=== PATIENT | female | born 1975 | race Two or more races ===

== ENCOUNTER 2021-01-29 17:31 | Emergency (ER) | payer MEDICAID, OTHER ==
[~2021-01-29] VITALS: Ht 165.1 cm; Wt 59.0 kg
[2021-01-29 19:12] LABS: Basophils # (auto) 0 10 ^3/uL (0-0.2); Basophils % (auto) 0.3 % (0.0-2.0); Eosinophils # (auto) 0 10 ^3/uL (0-0.8); Eosinophils % (auto) 0.7 % (0.0-7.0); Hematocrit 37.8 % (36.0-46.0); Hemoglobin 12.6 g/dL (12.2-16.2); Lymphocytes # (auto) 2.3 10 ^3/uL (0.4-5.4); Lymphocytes % (auto) 38.6 % (10.0-50.0); Mean Corpuscular Hemoglobin 31.5 pg (28.0-32.0); Mean Corpuscular Hgb Conc. 33.2 g/dL (32.0-36.0); Mean Corpuscular Volume 94.7 fL (80.0-100.0); Monocytes # (auto) 0.3 10 ^3/uL (0-1.3); Monocytes % (auto) 5.1 % (0.0-12.0); Neutrophils # (auto) 3.3 10 ^3/uL (1.6-8.6); Neutrophils % (auto) 55.3 % (37.0-80.0); Nucleated Red Blood Cells % 0.2 %; Red Blood Cells 3.99 10^6/uL (4.0-5.20); Red Cell Distribution Width 12.7 % (11.8-14.3)
[2021-01-29 19:35] LABS: Albumin 4.4 g/dL (3.4-5.0); Potassium 3.4 mmol/L (3.5-5.1)
[2021-01-29 19:38] LABS: BUN/Creatinine Ratio 35.7
[2021-01-29 19:51] LABS: Bilirubin, Total 0.4 mg/dL (0.2-1.0); Total Protein 7.9 g/dL (6.4-8.2)
[2021-01-29 21:10] VITALS: BP 145/85
== END 2021-01-29 21:20 | disposition home or self-care (01) ==
LOC: ER 17:31
DX: R07.89 Other chest pain (principal); F17.210 Nicotine dependence, cigarettes, uncomplicated; Z90.710 Acquired absence of both cervix and uterus
CPT/HCPCS: 36415; 71046; 80053; 84484; 85025; 93005

== ENCOUNTER 2021-04-26 04:37 | Emergency (ER) | payer MEDICAID ==
[~2021-04-26] VITALS: Ht 165.1 cm; Wt 61.2 kg
[2021-04-26 06:09] LABS: Basophils # (auto) 0 10 ^3/uL (0-0.2); Basophils % (auto) 0.9 % (0.0-2.0); Eosinophils # (auto) 0.1 10 ^3/uL (0-0.8); Eosinophils % (auto) 1.1 % (0.0-7.0); Hematocrit 40.4 % (36.0-46.0); Hemoglobin 13.7 g/dL (12.2-16.2); Lymphocytes # (auto) 2.2 10 ^3/uL (0.4-5.4); Lymphocytes % (auto) 48.3 % (10.0-50.0); Mean Corpuscular Hemoglobin 31.8 pg (28.0-32.0); Mean Corpuscular Hgb Conc. 33.9 g/dL (32.0-36.0); Mean Corpuscular Volume 93.9 fL (80.0-100.0); Monocytes # (auto) 0.3 10 ^3/uL (0-1.3); Monocytes % (auto) 7.4 % (0.0-12.0); Neutrophils # (auto) 1.9 10 ^3/uL (1.6-8.6); Neutrophils % (auto) 42.3 % (37.0-80.0); Nucleated Red Blood Cells % 0.1 %; Red Blood Cells 4.31 10^6/uL (4.0-5.20); Red Cell Distribution Width 14.1 % (11.8-14.3); White Blood Cell 4.6 10^3/uL (4.4-10.8)
[2021-04-26 06:41] LABS: Potassium 3.4 mmol/L (3.5-5.1)
[2021-04-26 06:49] LABS: Albumin 4.6 g/dL (3.4-5.0); BUN/Creatinine Ratio 28.6; Bilirubin, Total 0.5 mg/dL (0.2-1.0); Total Protein 8.3 g/dL (6.4-8.2)
[2021-04-26] MEDS ORDERED: MECL1TAB42 PO (07:56)
[2021-04-26 08:13] VITALS: BP 131/96
== END 2021-04-26 08:14 | disposition home or self-care (01) ==
LOC: ER 04:37
DX: R42 Dizziness and giddiness (principal); F17.210 Nicotine dependence, cigarettes, uncomplicated; Z90.710 Acquired absence of both cervix and uterus
CPT/HCPCS: 36415; 70450; 80053; 83735; 85025

== ENCOUNTER → 2021-06-20 | Emergency (ER) | payer MEDICAID ==
[~2021-06-20] VITALS: Ht 165.1 cm; Wt 66.7 kg
[~2021-06-20] MED LIST: MECL1TAB42 PO
[2021-06-20 23:41] VITALS: BP 134/90
== END | disposition left against medical advice (07) ==
LOC: ER 23:36
DX: M54.50 Low back pain, unspecified (principal); R11.0 Nausea; Z53.21 Procedure and treatment not carried out due to patient leaving prior to being seen by health care provider

== ENCOUNTER 2021-08-17 19:26 | Emergency (ER) | payer MEDICAID ==
[~2021-08-17] VITALS: Ht 165.1 cm; Wt 61.2 kg
[2021-08-17 21:16] LABS: Basophils # (auto) 0 10 ^3/uL (0-0.2); Basophils % (auto) 0.2 % (0.0-2.0); Eosinophils # (auto) 0.1 10 ^3/uL (0-0.8); Eosinophils % (auto) 1.1 % (0.0-7.0); Hematocrit 36.4 % (36.0-46.0); Hemoglobin 12.2 g/dL (12.2-16.2); Lymphocytes # (auto) 2.1 10 ^3/uL (0.4-5.4); Lymphocytes % (auto) 44.9 % (10.0-50.0); Mean Corpuscular Hemoglobin 29.5 pg (28.0-32.0); Mean Corpuscular Hgb Conc. 33.6 g/dL (32.0-36.0); Mean Corpuscular Volume 87.7 fL (80.0-100.0); Monocytes # (auto) 0.4 10 ^3/uL (0-1.3); Monocytes % (auto) 7.4 % (0.0-12.0); Neutrophils # (auto) 2.2 10 ^3/uL (1.6-8.6); Neutrophils % (auto) 46.4 % (37.0-80.0); Nucleated Red Blood Cells % 0.1 %; Red Blood Cells 4.16 10^6/uL (4.0-5.20); Red Cell Distribution Width 13.3 % (11.8-14.3); White Blood Cell 4.7 10^3/uL (4.4-10.8)
[2021-08-17 21:33] LABS: Albumin 3.6 g/dL (3.4-5.0); BUN/Creatinine Ratio 31.7; Calcium 8.3 mg/dL (8.5-10.1); Potassium 3.2 mmol/L (3.5-5.1)
[2021-08-17 21:36] LABS: Bilirubin, Total 0.7 mg/dL (0.2-1.0); Total Protein 6.7 g/dL (6.4-8.2)
[2021-08-17 22:52] LABS: Urine Bacteria NONE SEEN /hpf (None Seen); Urine Blood Negative /uL (Negative); Urine Mucus FEW (None Seen); Urine Specific Gravity 1.023 (1.001-1.035); Urine WBC <1 /hpf (0 - 5)
[2021-08-17 23:49] VITALS: BP 118/70
== END 2021-08-17 23:50 | disposition home or self-care (01) ==
LOC: ER 19:26
DX: R10.2 Pelvic and perineal pain (principal); Z90.710 Acquired absence of both cervix and uterus; Z87.891 Personal history of nicotine dependence; Z79.899 Other long term (current) drug therapy
CPT/HCPCS: 36415; 74176; 80053; 81001; 85025

== ENCOUNTER 2021-10-08 11:05 | Emergency (ER) | payer MEDICAID ==
[~2021-10-08] VITALS: Ht 165.1 cm; Wt 75.0 kg
[2021-10-08 12:22] LABS: Albumin 3.9 g/dL (3.4-5.0); Calcium 8.7 mg/dL (8.5-10.1); Potassium 3.9 mmol/L (3.5-5.1)
[2021-10-08 12:25] LABS: BUN/Creatinine Ratio 31.1; Bilirubin, Total 0.7 mg/dL (0.2-1.0); Total Protein 7.3 g/dL (6.4-8.2)
[2021-10-08 13:15] LABS: Basophils # (auto) 0 10 ^3/uL (0-0.2); Basophils % (auto) 0.2 % (0.0-2.0); Eosinophils # (auto) 0 10 ^3/uL (0-0.8); Eosinophils % (auto) 0.8 % (0.0-7.0); Hematocrit 38.6 % (36.0-46.0); Hemoglobin 12.5 g/dL (12.2-16.2); Lymphocytes # (auto) 1.7 10 ^3/uL (0.4-5.4); Lymphocytes % (auto) 30.6 % (10.0-50.0); Mean Corpuscular Hemoglobin 27.2 pg (28.0-32.0); Mean Corpuscular Hgb Conc. 32.5 g/dL (32.0-36.0); Mean Corpuscular Volume 83.6 fL (80.0-100.0); Monocytes # (auto) 0.3 10 ^3/uL (0-1.3); Monocytes % (auto) 5.4 % (0.0-12.0); Neutrophils # (auto) 3.4 10 ^3/uL (1.6-8.6); Nucleated Red Blood Cells % 0.1 %; Red Blood Cells 4.62 10^6/uL (4.0-5.20); Red Cell Distribution Width 14.2 % (11.8-14.3); White Blood Cell 5.4 10^3/uL (4.4-10.8)
[2021-10-08 16:12] LABS: Urine Bacteria NONE SEEN /hpf (None Seen); Urine Blood TRACE /uL (Negative); Urine Mucus FEW (None Seen); Urine WBC 1 /hpf (0 - 5)
[2021-10-08 16:24] VITALS: BP 132/74
== END 2021-10-08 16:23 | disposition home or self-care (01) ==
LOC: ER 11:18
DX: R55 Syncope and collapse (principal); R51.9 Headache, unspecified; Z20.822 Contact with and (suspected) exposure to COVID-19; Z90.710 Acquired absence of both cervix and uterus
CPT/HCPCS: 36415; 70450; 80053; 81001; 85025; 93005

== ENCOUNTER 2021-12-23 22:34 | Emergency (ER) | payer MEDICAID | END 2021-12-23 23:23 | disposition left against medical advice (07) | LOC: ER 22:34 | DX: R10.9 Unspecified abdominal pain (principal); Z53.21 Procedure and treatment not carried out due to patient leaving prior to being seen by health care provider ==

== ENCOUNTER 2022-04-21 15:58 | Emergency (ER) | payer MEDICAID ==
[~2022-04-21] VITALS: Ht 165.1 cm; Wt 69.9 kg
[2022-04-21 16:17] VITALS: BP 137/93
[2022-04-21 17:31] LABS: Basophils # (auto) 0 10 ^3/uL (0-0.2); Basophils % (auto) 0.4 % (0.0-2.0); Eosinophils # (auto) 0.1 10 ^3/uL (0-0.8); Eosinophils % (auto) 1.3 % (0.0-7.0); Hematocrit 34.8 % (36.0-46.0); Hemoglobin 11.2 g/dL (12.2-16.2); Lymphocytes % (auto) 38.9 % (10.0-50.0); Mean Corpuscular Hemoglobin 24.4 pg (28.0-32.0); Mean Corpuscular Hgb Conc. 32.1 g/dL (32.0-36.0); Mean Corpuscular Volume 76.2 fL (80.0-100.0); Monocytes # (auto) 0.3 10 ^3/uL (0-1.3); Monocytes % (auto) 5.3 % (0.0-12.0); Neutrophils # (auto) 2.8 10 ^3/uL (1.6-8.6); Neutrophils % (auto) 54.1 % (37.0-80.0); Nucleated Red Blood Cells % 0.1 %; Red Blood Cells 4.57 10^6/uL (4.0-5.20); Red Cell Distribution Width 18.6 % (11.8-14.3); White Blood Cell 5.2 10^3/uL (4.4-10.8)
[2022-04-21 17:45] LABS: Albumin 3.8 g/dL (3.4-5.0); Calcium 8.7 mg/dL (8.5-10.1); Potassium 3.3 mmol/L (3.5-5.1)
[2022-04-21 17:47] LABS: BUN/Creatinine Ratio 34.8
[2022-04-21 17:50] LABS: Bilirubin, Total 0.6 mg/dL (0.2-1.0); Total Protein 7.1 g/dL (6.4-8.2)
[2022-04-21] MEDS ORDERED: POTASSIUM EFFERVESENT TAB 25 MEQ PO ONE (21:00)
[2022-04-21] MEDS ORDERED: FERROUS SULFATE 325mg EC TAB PO ONE (21:00)
== END 2022-04-21 22:39 | disposition left against medical advice (07) ==
LOC: ER 15:58
DX: E87.6 Hypokalemia (principal); D64.9 Anemia, unspecified; Z90.710 Acquired absence of both cervix and uterus; Z87.891 Personal history of nicotine dependence; Z79.899 Other long term (current) drug therapy; Z88.8 Allergy status to other drugs, medicaments and biological substances
CPT/HCPCS: 36415; 71045; 80053; 84484; 85025; 93005; 99285; J7030

== ENCOUNTER 2022-09-28 23:58 | Emergency (ER) | payer MEDICAID ==
[~2022-09-28] VITALS: Ht 165.1 cm; Wt 67.0 kg
[2022-09-29 00:23] LABS: Basophils # (auto) 0 10 ^3/uL (0-0.2); Basophils % (auto) 0.2 % (0.0-2.0); Eosinophils # (auto) 0.1 10 ^3/uL (0-0.8); Eosinophils % (auto) 1.6 % (0.0-7.0); Hematocrit 37.2 % (36.0-46.0); Hemoglobin 12.3 g/dL (12.2-16.2); Lymphocytes # (auto) 3.2 10 ^3/uL (0.4-5.4); Lymphocytes % (auto) 47.6 % (10.0-50.0); Mean Corpuscular Hemoglobin 28.4 pg (28.0-32.0); Mean Corpuscular Hgb Conc. 33.1 g/dL (32.0-36.0); Mean Corpuscular Volume 85.9 fL (80.0-100.0); Monocytes # (auto) 0.4 10 ^3/uL (0-1.3); Monocytes % (auto) 6.5 % (0.0-12.0); Neutrophils % (auto) 44.1 % (37.0-80.0); Nucleated Red Blood Cells % 0.1 %; Red Blood Cells 4.33 10^6/uL (4.0-5.20); Red Cell Distribution Width 15.6 % (11.8-14.3); White Blood Cell 6.7 10^3/uL (4.4-10.8)
[2022-09-29 00:30] LABS: INR 1.06 (0.9-1.15); Partial Thromboplastin Time 27.9 SEC (24.5-34.5)
[2022-09-29 00:33] LABS: Albumin 3.8 g/dL (3.4-5.0); BUN/Creatinine Ratio 28.6 (10.0-20.0); Calcium 8.3 mg/dL (8.5-10.1); Magnesium 2.2 mg/dL (1.6-2.6); Potassium 3.4 mmol/L (3.5-5.1)
[2022-09-29 00:36] LABS: Bilirubin, Total 0.5 mg/dL (0.2-1.0); Total Protein 7.2 g/dL (6.4-8.2)
[2022-09-29] MEDS ORDERED: POTASSIUM CHL 20 Meq TABLET PO ONE (02:15)
[2022-09-29] MEDS ORDERED: HYDROcodone-ACET 5/325MG TAB PO ONE (02:15)
[2022-09-29] MEDS ORDERED: DexAMETHasone SOD PHOS 10MG/1ML VIAL INJ IV ONE (02:15)
[2022-09-29 04:29] VITALS: BP 148/93
== END 2022-09-29 04:46 | disposition home or self-care (01) ==
LOC: ER 23:58
DX: R07.89 Other chest pain (principal); E87.6 Hypokalemia; G89.29 Other chronic pain; M54.9 Dorsalgia, unspecified; R06.02 Shortness of breath; Z87.891 Personal history of nicotine dependence; Z90.710 Acquired absence of both cervix and uterus
CPT/HCPCS: 36415; 71045; 80053; 83735; 83880; 84484; 85025; 85610; 85730; 93005; 96374; 99285; J1100

== ENCOUNTER 2023-05-31 17:47 | Emergency (ER) | payer MEDICAID ==
[~2023-05-31] VITALS: Ht 162.6 cm; Wt 73.7 kg
[~2023-05-31 17:47] MED LIST changes: +ACET-1304 PO; +CEPH500T PO; +METO-281 PO
[2023-05-31 18:02] VITALS: BP 140/86; PULSE 70; RESP 18; O2SAT 95
== END 2023-05-31 20:35 | disposition left against medical advice (07) ==
LOC: ER 17:47
DX: R05.9 Cough, unspecified (principal); Z53.21 Procedure and treatment not carried out due to patient leaving prior to being seen by health care provider

== ENCOUNTER 2024-06-25 14:31 | Inpatient (IN) | payer MEDICAID ==
[~2024-06-25] VITALS: Ht 165.1 cm; Wt 66.0 kg
--- NOTE | 2024-06-25 14:54 | ED.PDOC ---
HPI Comments 49 y.o female with PMHx of HTN, anxiety, DM, and back pain, presents to the ED via EMS for a chief complaint of substernal chest pain radiating to the left side and to bilateral shoulder blades that started today around 0200. Patient reports pain woke her up from her sleep, states pain is reproducible and is associated with new onset of chills. Patient was at a clinic today to follow up with PCP when pain worsened, prompting office to call 911. Patient denies any nausea, vomiting, fever, chills, abdominal pain. Time Seen by MD: 14:35 Primary Care Provider: ALLAN Reviewed Notes: Nurses Notes, Market Master Notes, Medications, Allergies Allergies: Uncoded Allergies: GLUTEN (Allergy, Unknown, 04/26/21) Home Meds Reported Medications Oxycodone Hcl (OxyCONTIN ER Tablet) 10 Mg Tb, 1 TAB PO TIDPRN, #60 TAB 06/25/24 Gabapentin (Gabapentin) 300 Mg Cap, 1 CAP PO TID, #90 CAP 3 Refills 06/25/24 Tizanidine Hydrochloride (Zanaflex) 4 Mg Cap, 1 CAP PO TID, #90 CAP 06/25/24 Information Source: Patient, Emergency Med Personnel Mode of Arrival: Ambulatory Severity: Moderate Timing: Hours Duration: Since onset Prehospital treatment: 12 Lead EKG, Accucheck (115), Disability Program Navigator Location: Chest (L), Substernal Radiation: Shoulder (R), Shoulder (L) Quality: Sharp Onset: At Rest Cardiac Risk Factors: HTN, Diabetes PE Risk Factors: None History of: None Modifying Factors: Nothing Associated Signs and Symptoms: Other Past Medical History PAST MEDICAL HISTORY: Anxiety, DM, HTN Past Medical History (Other): chronic back pain Surgical History: Hysterectomy Surgical History (Other): neck ENDLESS BELT FINISHER History: No Pertinent ENDLESS BELT FINISHER History Family History Family History: Family hx of DM, Family hx of Cancer, Family hx of heart holly Social History Smoker: Quit Less Than 1 Year Alcohol: Denies ETOH Use Drugs: Denies Drug Use Lives In: Home Constitutional: denies: chills, diaphoresis, fatigue, fever, malaise, sweats, weakness, others EENTM: denies: blurred vision, double vision, ear bleeding, ear discharge, ear drainage, ear pain, ear ringing, eye pain, eye redness, hearing loss, mouth pain, mouth swelling, nasal discharge, nose bleeding, nose congestion, nose pain, photophobia, tearing, throat pain, throat swelling, voice changes, others Respiratory: denies: cough, hemoptysis, orthopnea, SOB at rest, shortness of breath, SOB with excertion, stridor, wheezing, others Cardiovascular: reports: chest pain; denies: dizzy spells, diaphoresis, Dyspnea on exertion, edema, irregular heart beat, left arm pain, lightheadedness, palpitations, PND, syncope, others Gastrointestinal: denies: abdomen distended, abdominal pain, blood streaked bowels, constipated, diarrhea, dysphagia, difficulty swallowing, hematemesis, melena, nausea, poor appetite, poor fluid intake, rectal bleeding, rectal pain, vomiting, others Genitourinary: denies: abnormal vagina bleeding, burning, dyspareunia, dysuria, flank pain, frequency, hematuria, incontinence, pain, , vagina discharge, urgency, others Neurological: denies: dizziness, fainting, headache, left sided numbness, left sided weakness, numbness, paresthesia, pre-existing deficit, right sided numbness, right sided weakness, seizure, speech problems, tingling, tremors, weakness, others Musculoskeletal: reports: others (bilateral shoulder blade pain ); denies: back pain, gout, joint pain, joint swelling, muscle pain, muscle stiffness, neck pain Integumetry: denies: bruises, change in color, change in hair/nails, dryness, laceration, lesions, lumps, rash, wounds, others Allergic/Immunocompromised: denies: Difficulty Healing, Frequent Infections, H deshaun, Itching, others Hematologic/Lymphatic: denies: anemia, blood clots, easy bleeding, easy bruising, swollen glands, others Endocrine: denies: excessive hunger, excessive sweating, excessive thirst, excessive urination, flushing, intolerance to cold, intolerance to heat, unexplained weight gain, unexplained weight loss, others Psychiatric: denies: anxiety, bipolar disorder, depression, hopeless, panic disorder, schizophrenia, sleepless, suicidal, others All Other Systems: Reviewed and Negative Physical Exam General Appearance: Moderate Distress HEENT: Normal ENT Inspection, Pharynx Normal, TMs Normal Neck: Full Range of Motion, Non-Tender, Normal, Normal Inspection Respiratory: Chest Non-Tender, Lungs Clear, No Accessory Muscle Use, No Respiratory Distress, Normal Breath Sounds Cardiovascular: No Edema, No JVD, No Murmur, No Gallop, Normal Peripheral Pulses, Regular Rate/Rhythm Breast Exam: Deferred Gastrointestinal: No Organomegaly, Non Tender, No Pulsatile Mass, Normal Bowel Sounds, Soft Genitalia: Deferred Pelvic: Deferred Rectal: Deferred Extremities: No calf tenderness, Normal capillary refill, Normal inspection, Normal range of motion, Non-tender, No pedal edema Musculoskeletal : Apperance: Normal Neurologic: Alert, radiologist chief of breast imaging II-XII nml as Tested, Motor Weakness, Normal Affect, Normal Mood, No Sensory Deficits Cerebellar Function: Normal Reflexes: Normal Skin: Dry, Normal Color, Warm Lymphatic: No Adenopathy EKG EKG : Pulse Rate (adult): 76 Cardiac Rhythm: NSR Hypertrophy: LVH Was a procedure done? Was a procedure done?: No CP Differential Dx Differential Diagnosis: Anxiety / Panic Attack Differential Diagnosis: Medical NonCompliance Differential Diagnosis: Angina, Chest Wall Pain, Cholelithiasis, Costochondritis, Esophageal reflux/spasm, Gastritis, Myocardial Infarction, Pericarditis X-Ray, Labs, Meds, VS Vital Signs Date Time Temp Pulse Resp B/P (MAP) Pulse Ox O2 Delivery O2 Flow Rate FiO2 06/25/24 19:23 99.2 110 18 156/112 (127) 97 99.2 06/25/24 15:59 92 06/25/24 15:10 98.2 95 16 142/85 (104) 97 98.2 06/25/24 15:10 95 16 98 Room Air* 0 21 06/25/24 15:01 76 06/25/24 14:59 76 06/25/24 14:57 98.2 88 20 190/92 (124) 96 98.2 Lab Test 06/25/24 16:11 06/25/24 15:18 06/25/24 15:08 Range/Units Troponin I High Sensitivity 3 L 4 </=34 ng/L Urine Color Light-yellow Yellow Urine Clarity Clear Clear Urine pH 7.0 5.0-9.0 Urine Specific [place] 1.014 1.001-1.035 Urine Protein 1+ H Negative Urine Ketones Negative Negative Urine Blood 1+ H Negative /uL Urine Nitrite Negative Negative Urine Bilirubin Negative Negative Urine Urobilinogen Normal Negative mg/dL Urine Leukocyte Esterase Negative Negative /uL Urine RBC 6 0 - 4 /hpf Urine Microscopic WBC < 1 0-5 /HPF Urine Squamous Epithelial Cells Few <5 /hpf Urine Bacteria None seen None Seen /hpf Urine Mucus Few None Seen Urine Glucose Normal Normal mg/dL White Blood Count 7.3 4.4-10.8 10^3/uL Red Blood Count 5.13 4.0-5.20 10^6/uL Hemoglobin 14.9 12.2-16.2 g/dL Hematocrit 44.5 36.0-46.0 % Mean Corpuscular Volume 86.8 80.0-100.0 fL Mean Corpuscular Hemoglobin 29.1 28.0-32.0 pg Mean Corpuscular Hemoglobin Concent 33.5 32.0-36.0 g/dL Red Cell Distribution Width 12.8 11.8-14.3 % Platelet Count 310 140-450 10^3/uL Mean Platelet Volume 8.0 6.9-10.8 fL Neutrophils (%) (Auto) 63.9 37.0-80.0 % Lymphocytes (%) (Auto) 31.1 10.0-50.0 % Monocytes (%) (Auto) 4.2 0.0-12.0 % Eosinophils (%) (Auto) 0.4 0.0-7.0 % Basophils (%) (Auto) 0.4 0.0-2.0 % Neutrophils # (Auto) 4.7 1.6-8.6 10 ^3/uL Lymphocytes # (Auto) 2.3 0.4-5.4 10 ^3/uL Monocytes # (Auto) 0.3 0-1.3 10 ^3/uL Eosinophils # (Auto) 0 0-0.8 10 ^3/uL Basophils # (Auto) 0 0-0.2 10 ^3/uL Nucleated Red Blood Cells 0.0 % Prothrombin Time 10.3 9.3-11.8 sec Prothrombin Time INR 0.97 0.9-1.15 Activated Partial Thromboplast Time 25.9 24.5-34.5 SEC D-Dimer, Quantitative 0.40 0.0-0.49 mg/L FEU Sodium Level 142 136-145 mmol/L Potassium Level 3.8 3.5-5.1 mmol/L Chloride Level 106 98-107 mmol/L Carbon Dioxide Level 24 20-31 mmol/L Anion Gap 12 5-15 Blood Urea Nitrogen 20 9-23 mg/dL Creatinine 0.73 0.550-1.02 mg/dL Glomerular Filtration Rate Calc 100 >90 mL/min BUN/Creatinine Ratio 27.4 H 10.0-20.0 Serum Glucose 104 74-106 mg/dL Calcium Level 11.0 H 8.7-10.4 mg/dL Current Medications Medications (Trade) Dose Ordered Sig/Rosio Route Start Time Stop Time Status Last Admin Lorazepam (Ativan Inj) 1 mg ONCE ONCE IV 06/25/24 15:30 06/25/24 15:31 DC 06/25/24 15:32 IV Hep-Lock was established The patient was given Ativan 1 mg IV push The D-dimer was negative The patient's CBC and chemistry panel are within normal limits The patient's urine test is negative for infection The patient was having persistent chest pain The troponin level x2 is within normal limits. The patient is being admitted at this time Images Reviewed?: Images reviewed and evaluated by me Time of 1ST Reevaluation: 14:50 Reevaluation 1ST: Unchanged Patient Education/Counseling: Diagnosis, Treatment, Prognosis Family Education/Counseling: No Family Present Departure 1 Departure Time of Disposition: 20:36 Impression: Primary Impression: Acute chest pain Additional Impression: Acute myocardial ischemia Disposition: 09 ADMITTED INPATIENT Admit to: [facility] Condition: Fair Critical Care Note Critical Care Time?: Yes (45 min-critical care time only) Stability Stability form required: Yes Unstable for transfer: Telemetry monitoring (Telemetry monitoring required), ED Physician Assesment (Clinical assesment) Heart Score Heart Score: Heart Score Response (Comments) Value History Slightly Suspicious 0 EKG Normal 0 Age 45-64 1 Risk Factors 1 or 2 risk factors 1 Troponin 1-2 x's Normal limit 1 Total 3 I personally scribed for DONITA GARCIA MD ([email or web address]) on 06/25/24 at 14:54. Electronically submitted by Shelley Lindsey ([email or web address]). I personally scribed for DONITA GARCIA MD ([email or web address]) on 06/25/24 at 15:01. Electronically submitted by Shelley Lindsey ([email or web address]). DONITA GARCIA MD Jun 25, 2024 14:54
[2024-06-25 15:10] VITALS: PULSE 95; RESP 16; O2SAT 98
[2024-06-25] MEDS: cloNIDine HCL 0.1 MG TAB PO ONE (15:13)
[2024-06-25 15:21] LABS: Basophils # (auto) 0 10 ^3/uL (0-0.2); Basophils % (auto) 0.4 % (0.0-2.0); Eosinophils # (auto) 0 10 ^3/uL (0-0.8); Eosinophils % (auto) 0.4 % (0.0-7.0); Hematocrit 44.5 % (36.0-46.0); Hemoglobin 14.9 g/dL (12.2-16.2); Lymphocytes # (auto) 2.3 10 ^3/uL (0.4-5.4); Lymphocytes % (auto) 31.1 % (10.0-50.0); Mean Corpuscular Hemoglobin 29.1 pg (28.0-32.0); Mean Corpuscular Hgb Conc. 33.5 g/dL (32.0-36.0); Mean Corpuscular Volume 86.8 fL (80.0-100.0); Monocytes # (auto) 0.3 10 ^3/uL (0-1.3); Monocytes % (auto) 4.2 % (0.0-12.0); Neutrophils # (auto) 4.7 10 ^3/uL (1.6-8.6); Neutrophils % (auto) 63.9 % (37.0-80.0); Platelet Count (auto) 310 10^3/uL (140-450); Red Blood Cells 5.13 10^6/uL (4.0-5.20); Red Cell Distribution Width 12.8 % (11.8-14.3); White Blood Cell 7.3 10^3/uL (4.4-10.8)
[2024-06-25 15:30] LABS: Chloride 106 mmol/L (98-107); Potassium 3.8 mmol/L (3.5-5.1); Sodium 142 mmol/L (136-145)
[2024-06-25 15:31] LABS: Anion Gap 12 (5-15); Carbon Dioxide 24 mmol/L (20-31)
[2024-06-25] MEDS: LORazepam 2MG/ML-1ML VIAL IV ONE (15:32)
[2024-06-25 15:35] LABS: INR 0.97 (0.9-1.15); Partial Thromboplastin Time 25.9 SEC (24.5-34.5); Prothrombin Time 10.3 sec (9.3-11.8)
[2024-06-25 15:36] LABS: BUN/Creatinine Ratio 27.4 (10.0-20.0); Blood Urea Nitrogen 20 mg/dL (9-23); Glucose 104 mg/dL (74-106)
[2024-06-25 15:54] LABS: Urine Bacteria None Seen /hpf (None Seen)
--- NOTE | 2024-06-25 16:00 | ECG ---
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
[2024-06-25 16:19] LABS: Urine Blood 1+ /uL (Negative); Urine Clarity Clear (Clear); Urine Color Light-Yellow (Yellow); Urine Mucus FEW (None Seen); Urine Protein, UAD 1+ (Negative); Urine Specific Gravity 1.014 (1.001-1.035); Urine Squamous Epithelial Cell FEW /hpf (<5); Urine Urobilinogen Normal (Negative); Urine WBC < 1 /HPF (0-5)
--- NOTE | 2024-06-25 16:49 | DVH ---
EXAM: XY CHEST PORTABLE HISTORY: chest pain COMPARISON: XY CHEST PORTABLE on DOS: 09/28/22, CHEST PORTABLE on DOS: 04/21/22, CXRP on DOS: 04/21/22 TECHNIQUE: Portable upright AP view of the chest was performed. FINDINGS: No pneumothorax, consolidative infiltrates, or pulmonary edema. The heart is not enlarged. IMPRESSION: No acute intrathoracic process.
--- NOTE | 2024-06-25 17:36 | DVH ---
PROCEDURE: CT CT ANGIO CHEST CONTRAST 06/25/2024 04:34 PM INDICATION: chest pain COMPARISON: None TECHNIQUE: Coverage: Thorax IV contrast: Administered Phases: Arterial Multiplanar 3-D Maximum Intensity Projection images (MIP) reconstructions were created by the techncarolyn jolly in the coronal and sagittal planes as part of the CT angiography protocol. Adverse events: None Medication laboratory values were reviewed to verify the patient meets criteria for contrast administ ration. All CT scans at this medical facility are performed using dose modulation techniques as appropriate t o a performed exam including the following: Automated exposure control was utilized; adjustment of th e MA and/or KV according to patient size; and use of iterative reconstruction technique. Radiation dose: CTDIvol 9.38 mGy, DLP 289.43 mGy*cm. FINDINGS: Cardiovascular: No evidence of acute or chronic pulmonary emboli identified in the 1st , 2nd and 3rd order branches of the pulmonary arteries. The segmental and subsegmental branches are not well opacif ied. Aorta is normal in caliber. The heart is normal in size. Lungs: No focal consolidation. No pleural effusion. No pneumothorax. The airways are patent. Thyroid: Unremarkable. Esophagus: Unremarkable. Lymphatics: No hilar or mediastinal lymphadenopathy. Bones/soft tissues: No acute abnormality. Upper abdomen: No acute abnormality. Other: None. IMPRESSION: 1. No pulmonary emboli, aortic aneurysm or dissection. 2. No acute cardiopulmonary disease.
[2024-06-25] MEDS: IOHEXOL 350 MG/ML 100ML IJ ONE (17:42)
--- NOTE | 2024-06-25 19:10 | ECG ---
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
[2024-06-25] MEDS ORDERED: GABA-1250 PO (20:18)
[2024-06-25] MEDS ORDERED: TIZA4CAP PO (20:18)
[2024-06-25] MEDS ORDERED: OXY10CRT PO (20:18)
[2024-06-25] MEDS: HYDROcodone-ACET 10/325MG TAB PO ONE (21:15)
[2024-06-25] MEDS: GABAPENTIN 300 MG CAP PO ONE (21:16)
[2024-06-26] VITALS (8 sets, daily range): BP systolic 126–144; BP diastolic 70–83; PULSE 66–106; RESP 14–20; TEMP 97.8–98.9; O2SAT 95–98
[2024-06-26] MEDS: KETOROLAC TROMETH 30 MG/ML 1ML VIAL IV ONE (01:19)
[2024-06-26] MEDS ORDERED: NITROGLYCERIN 0.4 MG SL TAB SL PRN (01:30)
[2024-06-26] MEDS ORDERED: MORPHINE SULFATE INJ 2 MG/ml SYRG IV PRN ×2 (01:30)
[2024-06-26] MEDS ORDERED: DOCUSATE SOD 100 MG CAP PO PRN (01:30)
[2024-06-26] MEDS ORDERED: ONDANSETRON HCL 4 MG/2 ML VIAL IV PRN (01:30)
[2024-06-26] MEDS ORDERED: hydrALAZINE HCL 20 MG/ML VL IV PRN (04:15)
[2024-06-26] MEDS ORDERED: TIZA6CAP10 PO (07:01)
[2024-06-26] MEDS ORDERED: LISI-275 PO (07:01)
[2024-06-26] MEDS ORDERED: LIDO1PAD55 TOP (07:01)
[2024-06-26] MEDS ORDERED: AMLO1TAB23 PO (07:01)
[2024-06-26] MEDS ORDERED: GAB100C PO (07:01)
[2024-06-26] MEDS ORDERED: OXYC-963 (07:01)
[2024-06-26] MEDS ORDERED: ERGO1CAP12 PO (07:01)
[2024-06-26] MEDS ORDERED: LORA-1121 PO (07:01)
--- NOTE | 2024-06-26 07:12 | DVHHPRES ---
History of Present Illness Resident Creating Document: RUPA SAVAGE RESIDENT History of Present Illness Ms Tucker, a 49-year-old female with a history of hypertension, anxiety, diabetes, and chronic back pain presented to the emergency department with substernal chest pain radiating to her left side and shoulder blades, which began around 2:00 AM and woke her from sleep. The pain, which is reproducible and accompanied by chills, worsened during a clinic visit, prompting a 911 call. She denies nausea, vomiting, fever, chills, and abdominal pain. Her primary care provider is Dr. Loza. She has a gluten allergy and is on medications including oxycodone, gabapentin, and tizanidine. She has a history of hysterectomy and neck surgery, and her family history includes diabetes, cancer, and heart disease. She quit smoking less than a year ago, denies alcohol and drug use, and lives at home. Past Medical History Anxiety, DM, HTN, chronic back pain Past Surgical History Hysterectomy Surgery neck Family History Family hx of DM, Family hx of Cancer, Family hx of heart holly Smoke: # pack years (Thirty pack-year smoking history) ALCOHOL: none Drugs: None Lives: with Family (home) Domestic Violence: Neg Review of Systems Constitutional: No: Fever, Chills, Sweats, Weakness, Malaise, Other Eyes: No: Pain, Vision change, Conjunctivae inflammation, Eyelid inflammation, Other, Redness ENT: No: Ear pain, Ear discharge, Nose pain, Nose discharge, Nose congestion, Mouth pain, Mouth swelling, Throat pain, Throat swelling, Other Respiratory: No: Cough, Dry, Shortness of breath, SOB with excertion, Wheezing, Hemoptysis, Pleuritic Pain, Sputum, Wheezing, Other Cardiovascular: Chest Pain; No: Palpitations, Orthopnea, Paroxysmal Noc. Dyspnea, Edema, Lt Headedness, Other Gastrointestinal: No: Nausea, Vomiting, Abdominal Pain, Diarrhea, Constipation, Melena, Hematochezia, Other Genitourinary: No Dysuria, No Frequency, No Incontinence, No Hematuria, No Retention, No Other Musculoskeletal: No: other, neck pain, shoulder pain, arm pain, back pain, hand pain, leg pain, foot pain Skin: No: Rash, Lesions, Jaundice, Bruising, Other Neurological: No: Weakness, Numbness, Incoordination, Change in speech, Confusion, Seizures, Other Allergies: Uncoded Allergies: GLUTEN (Allergy, Unknown, 04/26/21) Medications Current Medications Medications Dose Ordered Sig/Rosio Route Start Time Stop Time Status Last Admin Dose Admin Ondansetron HCl 4 mg Q4HP PRN IV 06/26/24 01:30 Docusate Sodium 100 mg BIDPRN PRN PO 06/26/24 01:30 Enoxaparin Sodium 40 mg DAILY SC 06/26/24 10:00 Morphine Sulfate 2 mg Q4HPRN PRN IV 06/26/24 01:30 Nitroglycerin 0.4 mg Q5MINP PRN SL 06/26/24 01:30 Morphine Sulfate 2 mg Q30M PRN IV 06/26/24 01:30 Hydralazine HCl 10 mg Q6HP PRN IV 06/26/24 04:15 Exam Vital Signs Vital Signs Date Time Temp Pulse Resp B/P (MAP) Pulse Ox O2 Delivery O2 Flow Rate FiO2 06/26/24 04:45 98.9 83 20 128/83 (98) 97 98.9 06/26/24 04:45 Room Air* 0 21 General Appearance: Alert, Oriented X3, Cooperative, mild distress HEENT: Atraumatic, PERRLA, EOMI, Mucous membr. moist/pink Respiratory: Clear to auscultation, Normal air movement Cardiovascular: Regular rate, Normal S1, Normal S2, No murmurs, Gallops, Rubs, Other (local tenderness) Abdominal: Normal bowel sounds, Soft, No tenderness, No hepatospenomegaly Extremities: No clubbing, No cyanosis, No edema, Normal pulses, No tender ness/swelling Skin: No rashes, No breakdown, No significant lesion Neuro: Normal gait, Normal speech, Strength at 5/5 X4 ext, Normal tone, Sensation intact, Cranial nerves 3-12 NL, Reflexes 2+ Psych/Mental Status: Mental status NL, Mood NL Labs/Xrays Labs Test 06/25/24 16:11 06/25/24 15:18 06/25/24 15:08 Range/Units Troponin I High Sensitivity 3 L </=34 ng/L Urine Color Light-yellow Yellow Urine Clarity Clear Clear Urine pH 7.0 5.0-9.0 Urine Specific [place] 1.014 1.001-1.035 Urine Protein 1+ H Negative Urine Ketones Negative Negative Urine Blood 1+ H Negative /uL Urine Nitrite Negative Negative Urine Bilirubin Negative Negative Urine Urobilinogen Normal Negative mg/dL Urine Leukocyte Esterase Negative Negative /uL Urine RBC 6 0 - 4 /hpf Urine Microscopic WBC < 1 0-5 /HPF Urine Squamous Epithelial Cells Few <5 /hpf Urine Bacteria None seen None Seen /hpf Urine Mucus Few None Seen Urine Glucose Normal Normal mg/dL White Blood Count 7.3 4.4-10.8 10^3/uL Red Blood Count 5.13 4.0-5.20 10^6/uL Hemoglobin 14.9 12.2-16.2 g/dL Hematocrit 44.5 36.0-46.0 % Mean Corpuscular Volume 86.8 80.0-100.0 fL Mean Corpuscular Hemoglobin 29.1 28.0-32.0 pg Mean Corpuscular Hemoglobin Concent 33.5 32.0-36.0 g/dL Red Cell Distribution Width 12.8 11.8-14.3 % Platelet Count 310 140-450 10^3/uL Mean Platelet Volume 8.0 6.9-10.8 fL Neutrophils (%) (Auto) 63.9 37.0-80.0 % Lymphocytes (%) (Auto) 31.1 10.0-50.0 % Monocytes (%) (Auto) 4.2 0.0-12.0 % Eosinophils (%) (Auto) 0.4 0.0-7.0 % Basophils (%) (Auto) 0.4 0.0-2.0 % Neutrophils # (Auto) 4.7 1.6-8.6 10 ^3/uL Lymphocytes # (Auto) 2.3 0.4-5.4 10 ^3/uL Monocytes # (Auto) 0.3 0-1.3 10 ^3/uL Eosinophils # (Auto) 0 0-0.8 10 ^3/uL Basophils # (Auto) 0 0-0.2 10 ^3/uL Nucleated Red Blood Cells 0.0 % Prothrombin Time 10.3 9.3-11.8 sec Prothrombin Time INR 0.97 0.9-1.15 Activated Partial Thromboplast Time 25.9 24.5-34.5 SEC D-Dimer, Quantitative 0.40 0.0-0.49 mg/L FEU Sodium Level 142 136-145 mmol/L Potassium Level 3.8 3.5-5.1 mmol/L Chloride Level 106 98-107 mmol/L Carbon Dioxide Level 24 20-31 mmol/L Anion Gap 12 5-15 Blood Urea Nitrogen 20 9-23 mg/dL Creatinine 0.73 0.550-1.02 mg/dL Glomerular Filtration Rate Calc 100 >90 mL/min BUN/Creatinine Ratio 27.4 H 10.0-20.0 Serum Glucose 104 74-106 mg/dL Calcium Level 11.0 H 8.7-10.4 mg/dL Assessment/Plan Assessment/Plan #hypertensive urgency: Presented with 190/92, slow improvement of blood pressure over 24-48 hours. Target blood pressure 140/90 or below as per AHA/ACC guidelines. # uncontrolled hypertension: Cardiac diet, salt restriction, lifestyle modification, home medications amlodipine 10 mg daily, lisinopril 5 mg daily, #Acute chest pain yet to rule out cardiac causes: Troponin unremarkable communication normal, D-dimer normal, EKG unremarkable. Likely noncardiac, echo, further evaluation to do, keep the patient on telemetry. Family history of CAD, possibly stress test might be helpful outpatient versus inpatient. Pain management, incentive spirometry. Status post IV Toradol pain subsided #non-myocardial chest pain close differential: Differential diagnosis include costochondritis, pericarditis, pruritus. #chronic back pain: Home medications restarted, oxycodone 10 mg t.i.d., lidocaine patch, gabapentin 100 t.i.d. as needed muscle relaxants #hypercalcemia: Might be dehydration related, look for albumin, check corrected calcium, workup with vitamin-D, PTH, phosphorus to follow up. #prior history of 30 pack-year smoking, quit 1 year back #rule out viral respiratory disease disease: CXR negative, with COVID and influenza # anxiety and insomnia: Lorazepam 0.5 mg daily. # history of hysterectomy # history of neck surgery Diet: Cardiac diet with 2 g salt restriction GI prophylaxis: with PPI, IV switch to oral when appropriate DVT prophylaxis: Lovenox Code status: Full code, as discussed at the bedside with the patient. Chart review, physical exam, medical management and planning needed total 37 minutes of clinical work. Patient is agreeable to the hospital for admission and further management. Discussed with Plan discussed with: Patient, Other (RN, primary team. ) My Orders Orders - RUPA SAVAGE RESIDENT Procedure Category Date Status Time Admit ADMIT 06/26/24 Transmitted 01:16 Allergies PRAKASH 06/26/24 In Process 01:16 Code Status CODE 06/26/24 Transmitted 01:16 Ondansetron Hcl PHA 06/26/24 In Process (Zofran) 01:30 Docusate Sodium PHA 06/26/24 In Process Capsule (Colace 01:30 Enoxaparin Sodium PHA 06/26/24 In Process (Lovenox) 10:00 Complete Blood Count LAB 06/27/24 Verified 04:00 Comprehensive LAB 06/27/24 Verified Metabolic Panel 04:00 Npo (Nothing By DIET 06/26/24 Transmitted Mouth) Diet Breakfast Echo 2d Mode Cardiac US 06/26/24 Logged DOP 01:16 Condition: Fair PRAKASH 06/26/24 In Process 01:16 Morphine Sulfate PHA 06/26/24 In Process Injection 01:30 Nitroglycerin PHA 06/26/24 In Process Sublingual (Ntrostat 01:30 Morphine Sulfate PHA 06/26/24 In Process Injection 01:30 Oxygen By Nasal RT 06/26/24 Transmitted Cannula 01:16 Stat Ekg For Chest [facility] 06/26/24 In Process Pain 01:16 Notify Of Changes [facility] 06/26/24 In Process From Base 01:16 Gi Tech For [facility] 06/26/24 In Process 24 Hours 01:16 Emergency Dysrhythmia [facility] 06/26/24 In Process Protocol 01:16 Rhythm Strips Once [facility] 06/26/24 In Process Every Shift 01:16 Hydralazine Injection PHA 06/26/24 In Process (Apresoline Inject 04:15 Complete Blood Count LAB 06/26/24 Logged 06:56 Comprehensive LAB 06/26/24 Logged Metabolic Panel 06:56 Echo 2d Mode Cardiac US 06/26/24 Logged DOP 06:56 Thyroid Stimulating LAB 06/26/24 Logged Hormone 06:56 Erythrocyte LAB 06/26/24 Logged Sedimentation Rate 06:56 C-Reactive Protein LAB 06/26/24 Logged 06:56 Drug Screen LAB 06/26/24 Logged 06:56 Urinalysis LAB 06/26/24 Logged 06:56 B-Type Natriuretic LAB 06/26/24 Logged Peptide 06:56 Incentive Spirometry ORDERS 06/26/24 Transmitted Q 1hr 06:56 Vitamin D, 25-Hydroxy LAB 06/26/24 Logged 06:56 Parathyroid Hormone LAB 06/26/24 Logged Intact 06:56 Phosphorus LAB 06/26/24 Logged 06:56 Ergocalciferol PHA 06/26/24 Logged (Vitamin D 50,000 07:15 Gabapentin Capsule PHA 06/26/24 Logged (Neurontin Capsule) 14:00 Lidocaine 5% Topical PHA 06/26/24 Logged Patch (Lidoderm 5% 10:00 Lorazepam Tablet PHA 06/26/24 Logged (Ativan Tablet) 07:15 Oxycodone Er Tablet PHA 06/26/24 Logged (Oxycontin Er Tablet 14:00 Date of Service: Jun 26, 2024 Billing Provider: LORI VILLALOBOS MD, SUMAN RESIDENT Jun 26, 2024 07:12
[2024-06-26] MEDS ORDERED: ERGOCALCIFEROL 50,000 UNIT(1.25MG) CAP PO SCH (07:15)
[2024-06-26] MEDS ORDERED: LORazepam 0.5 MG TAB PO PRN (07:15)
[2024-06-26 08:41] LABS: Basophils # (auto) 0 10 ^3/uL (0-0.2); Basophils % (auto) 0.3 % (0.0-2.0); Eosinophils # (auto) 0.1 10 ^3/uL (0-0.8); Hematocrit 38.1 % (36.0-46.0); Hemoglobin 12.9 g/dL (12.2-16.2); Lymphocytes # (auto) 2.7 10 ^3/uL (0.4-5.4); Lymphocytes % (auto) 40.3 % (10.0-50.0); Mean Corpuscular Hemoglobin 29.6 pg (28.0-32.0); Mean Corpuscular Hgb Conc. 33.8 g/dL (32.0-36.0); Mean Corpuscular Volume 87.6 fL (80.0-100.0); Monocytes # (auto) 0.5 10 ^3/uL (0-1.3); Monocytes % (auto) 6.9 % (0.0-12.0); Neutrophils # (auto) 3.4 10 ^3/uL (1.6-8.6); Neutrophils % (auto) 51.5 % (37.0-80.0); Nucleated Red Blood Cells % 0.1 %; Platelet Count (auto) 268 10^3/uL (140-450); Red Blood Cells 4.34 10^6/uL (4.0-5.20); Red Cell Distribution Width 12.9 % (11.8-14.3); White Blood Cell 6.6 10^3/uL (4.4-10.8)
[2024-06-26 08:57] LABS: Alanine Aminotransferase 29 U/L (7-40); Albumin 4.7 g/dL (3.2-4.8); Anion Gap 9 (5-15); Aspartate Aminotransferase 16 U/L (13-40); BUN/Creatinine Ratio 41.3 (10.0-20.0); CRP High Sensitivity 0.13 mg/dL (<1.0); Calcium 9.9 mg/dL (8.7-10.4); Carbon Dioxide 25 mmol/L (20-31); Glucose 94 mg/dL (74-106); Potassium 3.6 mmol/L (3.5-5.1); Sodium 142 mmol/L (136-145); Total Protein 6.9 g/dL (5.7-8.2)
[2024-06-26 08:58] LABS: Bilirubin, Total 0.9 mg/dL (0.2-1.0); Phosphorus 4.1 mg/dL (2.4-5.1)
[2024-06-26 08:59] LABS: Alkaline Phosphatase 141 U/L (46-116); Blood Urea Nitrogen 26 mg/dL (9-23); Chloride 108 mmol/L (98-107)
[2024-06-26 09:46] LABS: Erythrocyte Sedimentation Rate 8 mm/hr (0-20)
[2024-06-26] MEDS: LISINOPRIL 5 MG TAB PO SCH (09:58)
[2024-06-26] MEDS: ENOXAPARIN SOD 40 MG/0.4 ML SYRINGE SC SCH (09:59)
[2024-06-26] MEDS: PANTOPRAZOLE 40 MG/10 ML VIAL INJ IV SCH (09:59)
[2024-06-26] MEDS: amLODIPine BESYLATE 5 MG TAB PO SCH (09:59)
[2024-06-26] MEDS ORDERED: PATIENTS OWN MEDICATION (Amlodipine Besylate 1 TAB) PO SCH (10:00)
--- NOTE | 2024-06-26 10:33 | DVHPNRES ---
Progress Note Date Seen: Jun 26, 2024 Resident Creating Document: SHERRI LINO RESIDENT Medical Necessity Reason Pt with a Central, PICC or Fol: No Subjective Review of Systems Ms Tucker, a 49-year-old female with a history of hypertension, anxiety, diabetes, and chronic back pain presented to the emergency department with substernal chest pain radiating to her left side and shoulder blades, which began around 2:00 AM and woke her from sleep. The pain, which is reproducible and accompanied by chills, worsened during a clinic visit, prompting a 911 call. She denies nausea, vomiting, fever, chills, and abdominal pain. Her primary care provider is Dr. Loza. She has a gluten allergy and is on medications including oxycodone, gabapentin, and tizanidine. She has a history of hysterectomy and neck surgery, and her family history includes diabetes, cancer, and heart disease. She quit smoking less than a year ago, denies alcohol and drug use, and lives at home. Patient was seen and examined on the bedside. She is alert oriented x3. Complaint of mild chest discomfort and no other active complaint. Constitutional: No: Fever, Chills, Sweats, Weakness, Malaise, Other Eyes: No: Pain, Vision change, Conjunctivae inflammation, Eyelid inflammation, Other, Redness ENT: No: Ear pain, Ear discharge, Nose pain, Nose discharge, Nose congestion, Mouth pain, Mouth swelling, Throat pain, Throat swelling, Other Respiratory: Shortness of breath, improving No: Cough, Dry,Wheezing, Hemoptysis, Pleuritic Pain, Sputum, Wheezing, Other Cardiovascular: Chest Pain, No Palpitations, Orthopnea, Paroxysmal Noc. Dyspnea, Edema, Lt Headedness, Other Gastrointestinal: No: Nausea, Vomiting, Abdominal Pain, Diarrhea, Constipation, Melena, Hematochezia, Other Musculoskeletal: No: other, neck pain, shoulder pain, arm pain, back pain, hand pain, leg pain, foot pain Neurological:; No: Weakness, Numbness, Incoordination, Change in speech, Confusion, Seizures Objective vital signs Vital Sign Date Time Temp Pulse Resp B/P (MAP) Pulse Ox O2 Delivery O2 Flow Rate FiO2 06/26/24 09:59 156/95 06/26/24 09:00 98.0 66 18 98 98.0 06/26/24 04:45 Room Air* 0 21 Total Intake and Output 06/25/24 06/25/24 06/26/24 15:00 23:00 07:00 Intake Total 0 ml Balance 0 ml medications Current Medications Medications Dose Ordered Sig/Rosio Route Start Time Stop Time Status Last Admin Dose Admin Ondansetron HCl 4 mg Q4HP PRN IV 06/26/24 01:30 Docusate Sodium 100 mg BIDPRN PRN PO 06/26/24 01:30 Enoxaparin Sodium 40 mg DAILY SC 06/26/24 10:00 06/26/24 09:59 40 MG Morphine Sulfate 2 mg Q4HPRN PRN IV 06/26/24 01:30 Nitroglycerin 0.4 mg Q5MINP PRN SL 06/26/24 01:30 Morphine Sulfate 2 mg Q30M PRN IV 06/26/24 01:30 Hydralazine HCl 10 mg Q6HP PRN IV 06/26/24 04:15 Ergocalciferol 50,000 unit QWEEKLY PO 06/26/24 07:15 Gabapentin 100 mg TID PO 06/26/24 14:00 Lidocaine 2 patch DAILY TOP 06/26/24 10:00 Lorazepam 0.5 mg QHSP PRN PO 06/26/24 07:15 Oxycodone HCl 10 mg TIDPRN PRN PO 06/26/24 14:00 Future Hold Cyclobenzaprine HCl 5 mg Q8HPRN PRN PO 06/26/24 07:30 Pantoprazole Sodium 40 mg DAILY IV 06/26/24 10:00 06/26/24 09:59 40 MG Lisinopril 5 mg DAILY PO 06/26/24 10:00 06/26/24 09:58 5 MG Patient Own Medication 1 tab DAILY PO 06/26/24 10:00 UNV Amlodipine Besylate 10 mg DAILY PO 06/26/24 10:00 06/26/24 09:59 10 MG Examination Physical examination: General Appearance: Alert, Oriented X3, Cooperative, No acute distress HEENT: Atraumatic, PERRLA, EOMI, Mucous membrane moist/pink Respiratory: Clear to auscultation, Normal air movement Cardiovascular: Regular rate, Normal S1, Normal S2, No murmurs, no chest wall tenderness Abdominal: Normal bowel sounds, Soft, No tenderness, No hepatospenomegaly, No masses Extremities: No clubbing, No cyanosis, No edema, Normal pulses, No tenderness/swelling Skin: No rashes, No breakdown, No significant lesion Neuro: Normal gait, Normal speech, Strength at 5/5 X4 ext, Normal tone, Sensation intact, grossly intact cranial nerves. Psych/Mental Status: Mental status NL, Mood NL laboratory and microbiology Laboratory Tests 06/26/24 08:04 Test 06/26/24 08:04 Range/Units Serum Glucose 94 74-106 mg/dL Labs and/or images reviewed: Labs reviewed by me, Image(s) reviewed by me Problem List/Assessment/Plan Problem List/Assessment/Plan Assessment and plan: # Chest pain rule out ACS # Ruled out pulmonary embolism - EKG revealed sinus rhythm and troponin X3 were unremarkable - CxR showed normal study - Pending echo - Ordered treadmill stress test to rule out possible ischemia - Aspirin 81 mg p.o. daily and atorvastatin 20 mg at HS # Hypertensive urgency - On admission blood pressure was 190/90 - IV hydralazine 10 mg IV q.6 PRN - Lisinopril 5 mg daily and amlodipine 10 mg daily # Chronic back pain - Gabapentin 100 mg PO TID - Lidocaine 5% topical patch 2 patch daily - cyclobenzaprine 5 mg Q 8 p.r.n. # Vitamin-D deficiency # possible secondary hyperparathyroidism likely due to vitamin-D deficiency # mild hypercalcemia - vitamin-D 05982 units Q 7D # PUD prophylaxis - Protonix 40 mg p.o. daily # DVT prophylaxis - Lovenox 40 mg sc daily Goal of care discussed with the patient for more than 20 minutes full code Plan discussed with Dr. Baptiste Plan discussed with: Patient, Other My Orders My Orders Orders - SHERRI LINO Procedure Category Date Status Time Lisinopril Tablet PHA 06/26/24 In Process (Zestril Tablet) 10:00 Amlodipine Tablet PHA 06/26/24 In Process (Norvasc Tablet) 10:00 Date of Service: Jun 26, 2024 Billing Provider: GEORGINA BAPTISTE MD Common Visit Codes: [id number] INP/OBS CARE(HIGH) SHERRI LINO Jun 26, 2024 10:33 GEORGINA BAPTISTE MD Jun 26, 2024 18:50
[2024-06-26] MEDS: LIDOCAINE 5% TOPICAL PATCH TOP SCH (11:15)
[2024-06-26 12:23] LABS: COVID19 ANTIGEN SOFIA FIA NEGATIVE (NEGATIVE)
[2024-06-26 12:25] LABS: Rapid Influenza A Negative (Negative); Rapid Influenza B Negative (Negative)
[2024-06-26] MEDS: GABAPENTIN 100 MG CAP PO SCH (13:13)
[2024-06-26] MEDS ORDERED: oxyCODONE ER 10 MG TAB PO PRN (14:00)
[2024-06-26] MEDS: ERGOCALCIFEROL 50,000 UNIT(1.25MG) CAP PO SCH (16:12)
[2024-06-26] MEDS: CYCLOBENZAPRINE HCL 10 MG TAB PO PRN (17:46)
--- NOTE | 2024-06-27 17:14 | DVHDSRES ---
Discharge Summary Date of Admission Resident Creating Document: SHERRI LINO RESIDENT Jun 26, 2024 at 01:44 Date of Discharge: Jun 26, 2024 Admitting Diagnosis Chest pain rule out ACS Wounds: No wound was present Labs/Diagnostic Data: Laboratory Results Test 06/26/24 11:30 06/26/24 08:04 06/25/24 16:11 06/25/24 15:18 Influenza Type A Antigen Negative (Negative) Influenza Type B Antigen Negative (Negative) SARS-CoV-2 Antigen (Rapid) Negative (NEGATIVE) White Blood Count 6.6 10^3/uL (4.4-10.8) Red Blood Count 4.34 10^6/uL (4.0-5.20) Hemoglobin 12.9 g/dL (12.2-16.2) Hematocrit 38.1 % (36.0-46.0) Mean Corpuscular Volume 87.6 fL (80.0-100.0) Mean Corpuscular Hemoglobin 29.6 pg (28.0-32.0) Mean Corpuscular Hemoglobin Concent 33.8 g/dL (32.0-36.0) Red Cell Distribution Width 12.9 % (11.8-14.3) Platelet Count 268 10^3/uL (140-450) Mean Platelet Volume 8.3 fL (6.9-10.8) Neutrophils (%) (Auto) 51.5 % (37.0-80.0) Lymphocytes (%) (Auto) 40.3 % (10.0-50.0) Monocytes (%) (Auto) 6.9 % (0.0-12.0) Eosinophils (%) (Auto) 1.0 % (0.0-7.0) Basophils (%) (Auto) 0.3 % (0.0-2.0) Neutrophils # (Auto) 3.4 10 ^3/uL (1.6-8.6) Lymphocytes # (Auto) 2.7 10 ^3/uL (0.4-5.4) Monocytes # (Auto) 0.5 10 ^3/uL (0-1.3) Eosinophils # (Auto) 0.1 10 ^3/uL (0-0.8) Basophils # (Auto) 0 10 ^3/uL (0-0.2) Nucleated Red Blood Cells 0.1 % Erythrocyte Sedimentation Rate 8 mm/hr (0-20) Sodium Level 142 mmol/L (136-145) Potassium Level 3.6 mmol/L (3.5-5.1) Chloride Level 108 mmol/L (98-107) Carbon Dioxide Level 25 mmol/L (20-31) Anion Gap 9 (5-15) Blood Urea Nitrogen 26 mg/dL (9-23) Creatinine 0.63 mg/dL (0.550-1.02) Glomerular Filtration Rate Calc 108 mL/min (>90) BUN/Creatinine Ratio 41.3 (10.0-20.0) Serum Glucose 94 mg/dL (74-106) Hemoglobin A1c 5.5 % A1C (<5.7) Calcium Level 9.9 mg/dL (8.7-10.4) Phosphorus Level 4.1 mg/dL (2.4-5.1) Total Bilirubin 0.9 mg/dL (0.2-1.0) Aspartate Amino Transferase (AST) 16 U/L (13-40) Alanine Aminotransferase (ALT) 29 U/L (7-40) Alkaline Phosphatase 141 U/L (46-116) C-Reactive Protein High Sensitivity 0.13 mg/dL (<1.0) B-Type Natriuretic Peptide 29.97 pg/mL (0-100) Total Protein 6.9 g/dL (5.7-8.2) Albumin 4.7 g/dL (3.2-4.8) Vitamin D 25-Hydroxy 13.9 ng/mL (30.0-100) Thyroid Stimulating Hormone (TSH) 0.96 uIU/mL (0.55-4.78) Parathyroid Hormone (Intact) 89.7 pg/mL (18.4-80.1) Troponin I High Sensitivity 3 ng/L (</=34) Urine Color Light-yellow (Yellow) Urine Clarity Clear (Clear) Urine pH 7.0 (5.0-9.0) Urine Specific [place] 1.014 (1.001-1.035) Urine Protein 1+ (Negative) Urine Ketones Negative (Negative) Urine Blood 1+ /uL (Negative) Urine Nitrite Negative (Negative) Urine Bilirubin Negative (Negative) Urine Urobilinogen Normal mg/dL (Negative) Urine Leukocyte Esterase Negative /uL (Negative) Urine RBC 6 /hpf (0 - 4) Urine Microscopic WBC < 1 /HPF (0-5) Urine Squamous Epithelial Cells Few /hpf (<5) Urine Bacteria None seen /hpf (None Seen) Urine Mucus Few (None Seen) Urine Glucose Normal mg/dL (Normal) Test 06/25/24 15:08 Prothrombin Time 10.3 sec (9.3-11.8) Prothrombin Time INR 0.97 (0.9-1.15) Activated Partial Thromboplast Time 25.9 SEC (24.5-34.5) D-Dimer, Quantitative 0.40 mg/L FEU (0.0-0.49) Other Laboratory Tests 06/26/24 08:04 Brief Hx & Hospital Course: Ms Tucker, a 49-year-old female with a history of hypertension, anxiety, diabetes, and chronic back pain presented to the emergency department with substernal chest pain radiating to her left side and shoulder blades, which began around 2:00 AM and woke her from sleep. The pain, which is reproducible and accompanied by chills, worsened during a clinic visit, prompting a 911 call. She denies nausea, vomiting, fever, chills, and abdominal pain. Her primary care provider is Dr. Loza. She has a gluten allergy and is on medications including oxycodone, gabapentin, and tizanidine. She has a history of hysterectomy and neck surgery, and her family history includes diabetes, cancer, and heart disease. She quit smoking less than a year ago, denies alcohol and drug use, and lives at home. Hospital course: Initial EKG revealed sinus rhythm and a troponin x3 were unremarkable, chest x-ray showed normal study. ordered treadmill stress test to rule out possible ischemia and echo to rule out structural heart disease. Hypertensive urgency was managed with IV hydralazine 10 mg IV q.6 p.r.n. and also continuing home medications lisinopril 5 mg daily and amlodipine 10 mg daily. vitamin-D revealed low and PTH was high likely due to vitamin-D deficiency. Patient left AMA. Consults/Reason for consult No consultation was done Operations or Procedures EXAM: XY CHEST PORTABLE HISTORY: chest pain FINDINGS: No pneumothorax, consolidative infiltrates, or pulmonary edema. The heart is not enlarged. IMPRESSION: No acute intrathoracic process. PROCEDURE: CT CT ANGIO CHEST CONTRAST 06/25/2024 04:34 PM INDICATION: chest pain FINDINGS: Cardiovascular: No evidence of acute or chronic pulmonary emboli identified in the 1st , 2nd and 3rd order branches of the pulmonary arteries. The segmental and subsegmental branches are not well opacified. Aorta is normal in caliber. The heart is normal in size. Lungs: No focal consolidation. No pleural effusion. No pneumothorax. The airways are patent. Thyroid: Unremarkable. Esophagus: Unremarkable. Lymphatics: No hilar or mediastinal lymphadenopathy. Bones/soft tissues: No acute abnormality. Upper abdomen: No acute abnormality. Other: None. IMPRESSION: 1. No pulmonary emboli, aortic aneurysm or dissection. 2. No acute cardiopulmonary disease. Condition at Discharge: Undetermined Final Diagnosis/Problems List # Chest pain rule out ACS # Ruled out pulmonary embolism # Hypertensive urgency # Chronic back pain # Vitamin-D deficiency # possible secondary hyperparathyroidism likely due to vitamin-D deficiency # mild hypercalcemia Discharge Disposition: AMA Discharge Statement: "Patient was advised to return to the ER or call 911 if any headaches, dizziness, shortness of breath, chest pain, abdominal pain, bleeding, fevers, or worsening of medical condition. Patient was counseled about treatment plan, medications, possible side effects, patientverbalized understanding. All questions were answered to the best of my ability. This discharge took greater then 30 minutes in planning, reviewing documentation, counseling the patient, and discussing with other team members." ASSESSMENT ASSESSMENT Assessment Date of Service: Jun 26, 2024 Billing Provider: GEORGINA ALLEN MD Common Visit Codes: 24201-FRH/OBS DISCH DAY >30min SHERRI LINO RESIDENT Jun 27, 2024 17:14 GEORGINA ALLEN MD Jun 28, 2024 09:46
--- NOTE | 2024-06-29 16:33 | DVHSR ---
APPROVED REPORT EXAM: Two-dimensional and M-mode echocardiogram with Doppler and color Doppler. Blood Pressure: 126/75 mmHg INDICATION Chest Pain RISK FACTORS Height: 5'5", Weight: 145 DIMENSIONS LVDd4.3 (3.8-5.7cm)LA (2D)3.4 (1.9-4.0cm)Aortic Root3.0 (2.0-3.7cm) LVDs2.9 (2.5-4.0cm)LA (MM) (1.9-4.0cm)Aortic Cusp Exc1.7 (1.5-2.0cm) EF (%) 65.0 (55-70%)Rt. Atrium3.5 (1.9-4.0cm)Asc. Aorta cm IVSd1.0 (0.7-1.1cm)RV (D) (1.8-2.4cm) PWd0.9 (0.7-1.1cm) Mitral Valve MitralMitral Stenosis E wave0.77m/sMV Mean GR.mmHg A wave0.98m/sMV Peak GR.mmHg E/A ratio0.82D MVAcm2 DECEL [id number] 1/2 Timems Aortic Valve Aortic ValveAortic Stenosis V11.13m/Jan Mean GR.5mmHg V21.59m/Jan Peak GR.10mmHg LVOT Diameter2.1 (1.8-2.4cm)Doppler AVA2.46cm2 Pulmonic Valve V21.09m/s Tricuspid Valve TR Velocity2.71m/s [id number] Conclusion lvef 60% by visual estimate normal rv function normal atria no severe valve abnormalities noted
== END 2024-06-26 18:30 | disposition left against medical advice (07) | DRG 198 ==
LOC: ER 14:31 → EDBD 14:31 → OVERFLOW 06-26 01:20 → EAST 06-26 17:57
PROVIDERS: ADMIT Internal Medicine; ATTEND Internal Medicine
DX: I24.9 Acute ischemic heart disease, unspecified (principal); E11.9 Type 2 diabetes mellitus without complications; E83.52 Hypercalcemia; F41.9 Anxiety disorder, unspecified; I10 Essential (primary) hypertension; Z20.822 Contact with and (suspected) exposure to COVID-19; I16.0 Hypertensive urgency; M54.9 Dorsalgia, unspecified; G89.29 Other chronic pain; G47.00 Insomnia, unspecified; Z87.891 Personal history of nicotine dependence; Z79.899 Other long term (current) drug therapy; Z90.710 Acquired absence of both cervix and uterus; Z83.3 Family history of diabetes mellitus; Z53.29 Procedure and treatment not carried out because of patient's decision for other reasons
CPT/HCPCS: 36415; 71045; 71275; 80048; 80053; 81001; 82306; 83036; 83880; 83970; 84100; 84443; 84484; 85025; 85379; 85610; 85652; 85730; 86141; 87426; 87804; 93005; 93306; 96374; 97163; 99291; G0378; J1885; J2470